=== PATIENT | male | born 1970 | race Caucasian/White ===

== ENCOUNTER 2024-04-23 17:15 | Emergency (ER) | payer SELFPAY ==
[~2024-04-23] VITALS: Ht 182.9 cm; Wt 113.4 kg
[2024-04-23 17:16] VITALS: TEMP 98.3
[2024-04-23] MEDS ORDERED: ONDANSETRON HCL/PF 4 MG/2 ML VIAL ONE (18:03)
[2024-04-23] MEDS ORDERED: MORPHINE SULFATE INJ 4 MG/ML DISP.SYRIN ONE (18:04)
[2024-04-23] MEDS: ONDANSETRON HCL/PF 4 MG/2 ML VIAL IVP ONE (18:10)
[2024-04-23] MEDS: MORPHINE SULFATE INJ 2 MG/ML DISP.SYRIN IV ONE (18:12)
[2024-04-23] MEDS ORDERED: IBUP-1490 PO (19:24)
[2024-04-23] MEDS ORDERED: HYDR-3980 PO (19:24)
[2024-04-23 20:03] VITALS: BP 144/93; O2SAT 99
== END 2024-04-23 20:03 | disposition home or self-care (01) ==
LOC: ER 17:22
DX: S76.112A Strain of left quadriceps muscle, fascia and tendon, initial encounter (principal); I10 Essential (primary) hypertension; W10.8XXA Fall (on) (from) other stairs and steps, initial encounter; Y93.01 Activity, walking, marching and hiking; Y92.89 Other specified places as the place of occurrence of the external cause; Y99.8 Other external cause status
CPT/HCPCS: 99285; 96374; 73700; 96375; 93005; 73552; 73564 ×2; J2270; J2405